=== PATIENT | male | born 1960 | race Caucasian/White ===

== ENCOUNTER 2023-12-30 14:06 | Observation (INO) | payer OTHER ==
[2023-12-30 14:28] VITALS: BMI 31.6
[2023-12-30] MEDS: SODIUM CHLORIDE 1,000 ML IV SCH (15:32)
[2023-12-30 15:36] LABS: BASO % 0.4 % (0-2.0); EOS % 3.4 % (0-4.5); HEMATOCRIT 48.3 % (35.4-49); HEMOGLOBIN 16.2 GM/dL (11.7-16.9); LYMPH % 18.2 % (8-40); MCH 29.6 pg (25.7-33.7); MCHC 33.6 g/dl (32.0-35.9); MEAN PLT VOLUME 9.9 fl (7.5-11.1); MONO % 7.4 % (3.8-10.2); NEUT % 70.6 % (42.8-82.8); PLATELET COUNT 180 10^3/uL (134-434); RBC 5.48 M/mm3 (4.00-5.60); RDW 14.7 % (11.9-15.9); WHITE BLOOD COUNT 10.7 K/mm3 (4.0-10.0)
[2023-12-30 15:47] LABS: INR 1.16 (0.83-1.09); PROTHROMBIN TIME (PATIENT) 13.3 SEC (9.7-13.0)
[2023-12-30 15:50] LABS: ACTIVATED PTT 34.4 SECONDS (25.2-36.5)
[2023-12-30 15:56] LABS: POTASSIUM 3.8 mmol/L (3.5-5.1)
[2023-12-30 15:58] LABS: ALBUMIN 3.8 g/dl (3.4-5.0); CALCIUM 8.7 mg/dL (8.5-10.1)
[2023-12-30 15:59] LABS: BLOOD UREA NITROGEN 19.4 mg/dL (7-18)
[2023-12-30 16:02] LABS: CREATININE 0.9 mg/dL (0.55-1.3)
[2023-12-30 16:04] LABS: BILIRUBIN,TOTAL 0.6 mg/dL (0.2-1)
[2023-12-30 16:52] LABS: HIV INTERPRETATION NEGATIVE (NEGATIVE)
[2023-12-30] MEDS ORDERED: ASPIRIN 325 MG TABLET ONE (18:56)
[2023-12-30] MEDS ORDERED: CLOPIDOGREL BISULFATE 300 MG TABLET ONE (18:56)
[2023-12-30] MEDS: CLOPIDOGREL BISULFATE 300 MG TABLET PO ONE (19:01)
[2023-12-30] MEDS: ASPIRIN 325 MG TABLET PO ONE (19:01)
[2023-12-30] MEDS ORDERED: LABETALOL HCL 100 MG TABLET (FP) ONE (19:31)
[2023-12-30] MEDS: LABETALOL HCL 100 MG TABLET (FP) PO ONE (19:33)
[2023-12-30] MEDS ORDERED: DOCUSATE SODIUM 100 MG CAPSULE (FP) PO PRN (19:42)
[2023-12-31] MEDS ORDERED: ACETAMINOPHEN 325 MG TABLET (FP) ONE (04:39)
[2023-12-31] MEDS: ACETAMINOPHEN 325 MG TABLET (FP) PO PRN (04:43)
[2023-12-31 07:23] LABS: BASO % 0.5 % (0-2.0); EOS % 3.6 % (0-4.5); LYMPH % 20.2 % (8-40); MCH 29.8 pg (25.7-33.7); MCHC 33.4 g/dl (32.0-35.9); MEAN CELL VOLUME 89.2 fl (80-96); MEAN PLT VOLUME 10.6 fl (7.5-11.1); MONO % 7.7 % (3.8-10.2); PLATELET COUNT 165 10^3/uL (134-434); RBC 5.04 M/mm3 (4.00-5.60); RDW 14.4 % (11.9-15.9); WHITE BLOOD COUNT 9.9 K/mm3 (4.0-10.0)
[2023-12-31 07:37] LABS: POTASSIUM 4.1 mmol/L (3.5-5.1)
[2023-12-31 07:39] LABS: BLOOD UREA NITROGEN 24.7 mg/dL (7-18); CALCIUM 8.7 mg/dL (8.5-10.1); MAGNESIUM 2.3 mg/dL (1.8-2.4)
[2023-12-31 07:43] LABS: CREATININE 0.9 mg/dL (0.55-1.3)
[2023-12-31 08:14] LABS: EPI CELLS 8 /uL (0-25.1); HYALINE CASTS 2 /uL (0-3.1); PH,URINE 5.5 (5.0-8.0); URINE APPEARANCE CLEAR; URINE BACTERIA 28 /uL (0-1359); URINE BILIRUBIN 1+ (NEGATIVE); URINE COLOR DK YELLOW; URINE GLUCOSE (UA) NEGATIVE (NEGATIVE); URINE KETONE TRACE (NEGATIVE); URINE LEUK ESTERASE TRACE (NEGATIVE); URINE NITRITE NEGATIVE (NEGATIVE); URINE PROTEIN TRACE (NEGATIVE); URINE WBC 26 /uL (0-25.8)
[2023-12-31 08:23] LABS: URINE RBC 21.7 /uL (0-23.9)
[2023-12-31 09:48] VITALS: RESP 18; TEMP 98.1
[2023-12-31] MEDS ORDERED: ROSUVASTATIN CA 20 MG TABLET ONE (11:03)
[2023-12-31] MEDS ORDERED: ASPIRIN COATED 81 MG TABLET.EC ONE (11:03)
[2023-12-31] MEDS: NEBIVOLOL 2.5 MG TABLET (FP) PO ONE (11:11)
[2023-12-31] MEDS: ASPIRIN COATED 81 MG TABLET.EC PO SCH (11:11)
[2023-12-31] MEDS: ROSUVASTATIN CA 20 MG TABLET PO ONE (11:11)
[2023-12-31 14:47] VITALS: BP 153/91; PULSE 71
[2023-12-31] MEDS ORDERED: valACYclovir HCL 500 MG TABLET (FP) PO SCH (16:45)
[2023-12-31] MEDS ORDERED: amLODIPine BESYLATE 5 MG TABLET (FP) PO SCH (16:45)
[2023-12-31] MEDS ORDERED: ROSUVASTATIN CA 20 MG TABLET PO SCH (22:00)
[2023-12-31] MEDS ORDERED: predniSONE 10 MG TABLET (UD) PO SCH (22:00)
[2024-01-01] MEDS ORDERED: NEBIVOLOL 5 MG TABLET (FP) PO SCH (10:00)
== END 2023-12-31 18:20 | disposition home or self-care (01) ==
LOC: JER 14:06 → JERBED 17:04
PROVIDERS: ADMIT Internal Medicine; ATTEND Family Medicine
DX: R47.81 Slurred speech (principal); R29.810 Facial weakness; R20.0 Anesthesia of skin; I10 Essential (primary) hypertension; M41.9 Scoliosis, unspecified; F17.210 Nicotine dependence, cigarettes, uncomplicated; Z87.828 Personal history of other (healed) physical injury and trauma
CPT/HCPCS: 36415; 70450-TC; 70551-TC; 80048; 80053; 80061; 81003; 82550; 82962; 83036; 83735; 84484; 85025; 85610; 85730; 86803; 86850; 86900; 86901; 87389; 87522; 93005; 93010; 93306-TC; 93880-TC; 99285-25; G0378